=== PATIENT | female | born 1965 | race African-American/Black ===

== ENCOUNTER 2021-10-16 10:30 | Emergency (ER) | payer MEDICARE, OTHER ==
[2021-10-16] MEDS ORDERED: Sodium Chloride 0.9% 10 ML Syringe FLUSH PRN (11:16)
[2021-10-16] MEDS ORDERED: GI Cocktail Oral Solution 30 ML PO ONE (12:10)
[2021-10-16 12:16] LABS: CHLORIDE,CL 104 mmol/L (98-107); SODIUM,NA 141 mmol/L (136-145)
== END 2021-10-16 13:05 | disposition home or self-care (01) ==
LOC: DL.ED 10:30
DX: R07.89 Other chest pain (principal); E78.00 Pure hypercholesterolemia, unspecified; I25.2 Old myocardial infarction; K21.9 Gastro-esophageal reflux disease without esophagitis; E03.9 Hypothyroidism, unspecified; Z88.0 Allergy status to penicillin; Z91.013 Allergy to seafood; Z91.048 Other nonmedicinal substance allergy status; Z79.01 Long term (current) use of anticoagulants; Z79.899 Other long term (current) drug therapy
CPT/HCPCS: 36415; 71045; 80053; 82150; 83605; 83880; 84484; 85025; 93005; 99285; A9270

== ENCOUNTER 2022-07-05 14:30 | Emergency (ER) | payer MEDICARE, OTHER ==
[2022-07-05] MEDS ORDERED: Ciprofloxacin 500 MG Tab PO ONE (14:31)
[2022-07-05] MEDS ORDERED: Phenazopyridine 95 MG Tab PO ONE (14:31)
[2022-07-05] MEDS ORDERED: Fluconazole 100 MG Tab PO ONE (15:35)
[2022-07-05] MEDS ORDERED: Phenazopyridine 95 MG Tab ONE (15:38)
[2022-07-05] MEDS ORDERED: Ciprofloxacin 500 MG Tab ONE (15:38)
== END 2022-07-05 15:50 | disposition home or self-care (01) ==
LOC: DL.ED 14:30
DX: N39.0 Urinary tract infection, site not specified (principal); E70.0 Classical phenylketonuria; I25.2 Old myocardial infarction; K21.9 Gastro-esophageal reflux disease without esophagitis; E11.9 Type 2 diabetes mellitus without complications; E03.9 Hypothyroidism, unspecified; E66.9 Obesity, unspecified; Z68.41 Body mass index [BMI] 40.0-44.9, adult; Z88.0 Allergy status to penicillin; Z91.013 Allergy to seafood; Z79.01 Long term (current) use of anticoagulants; Z79.84 Long term (current) use of oral hypoglycemic drugs; Z79.899 Other long term (current) drug therapy
CPT/HCPCS: 81001; 87086; 99283; A9270

== ENCOUNTER 2023-04-16 17:16 | Emergency (ER) | payer MEDICARE, OTHER ==
[2023-04-16] MEDS ORDERED: Sodium Chloride 0.9% 10 ML Syringe FLUSH PRN (17:26)
[2023-04-16] MEDS ORDERED: Aspirin 81 MG Tab.Chew PO ONE (17:33)
[2023-04-16] MEDS: Nitroglycerin 0.4 MG Tab.SL SL PRN ×3 (17:55→18:41)
[2023-04-16] MEDS ORDERED: Morphine 4 MG/ML Syringe IVPUSH ONE (18:11)
[2023-04-16] MEDS ORDERED: Ondansetron 4 MG/2 ML SDV IV ONE (18:12)
[2023-04-16 18:21] LABS: BASOPHILS PERCENT AUTO 0.3 % (0.0-1.0); EOSINOPHILS PERCENT AUTO 0.7 % (1.0-3.0); HEMATOCRIT 40.6 % (37.0-47.0); HEMOGLOBIN 13.5 g/dL (12.0-16.0); LYMPHOCYTES PERCENT AUTO 29.9 % (20.5-50.1); MEAN CORPUSCULAR HGB CONC 33.3 g/dL (33.0-35.0); MEAN CORPUSCULAR VOLUME 90.2 fL (80-100); MONOCYTES PERCENT AUTO 8.3 % (2-8); NEUTROPHILS PERCENT AUTO 60.8 % (42.2-75.2); PLATELET COUNT,PLT 275 10^3/uL (150-450); WHITE BLOOD CELL COUNT,WBC 10.3 10^3/uL (5.0-10.0)
[2023-04-16 18:36] LABS: B-TYPE NATRIURETIC PEPTIDE,BNP 9 pg/ml (0-100)
[2023-04-16 18:41] LABS: ALANINE AMINOTRANSFERASE,ALT 24 U/L (14-59); ALBUMIN 3.6 g/dL (3.4-5.0); ALKALINE PHOSPHATASE 84 U/L (46-116); ANION GAP 11.8 mEq/L (7-13); ASPARTATE AMNIOTRANSFERASE,AST 16 U/L (15-37); BILIRUBIN TOTAL 0.1 mg/dL (0.2-1.0); BLOOD UREA NITROGEN,BUN 18 mg/dL (7-18); BUN/CREATININE RATIO 14.8 (No establ ref range); CALCIUM 8.8 mg/dL (8.5-10.1); CARBON DIOXIDE,CO2 27 mmol/L (21-32); CHLORIDE,CL 104 mmol/L (98-107); CREATININE 1.22 mg/dL (0.55-1.02); ESTIMATED GFR 52 mL/min (>=60); GLUCOSE RANDOM 103 mg/dL (70-99); POTASSIUM,K 3.8 mmol/L (3.5-5.1); PROTEIN TOTAL,TP 7.3 g/dL (6.4-8.2); SODIUM,NA 139 mmol/L (136-145)
[2023-04-16 18:55] LABS: PROTHROMBIN TIME 9.9 SEC (9.0-12.0); PTT,PARTIAL THROMBOPLSTIN TIME 22.1 SEC (22.0-34.0)
[2023-04-16] MEDS ORDERED: fentaNYL 100 MCG/2 ML SDV IVPUSH ONE (19:03)
[2023-04-16] MEDS ORDERED: predniSONE 10 MG Tab PO ONE (20:37)
[2023-04-16] MEDS ORDERED: Dexamethasone 4 MG/ML SDV IVPUSH ONE (20:56)
== END 2023-04-16 21:15 | disposition home or self-care (01) ==
LOC: DL.ED 17:16
DX: R07.81 Pleurodynia (principal); R07.89 Other chest pain; E78.00 Pure hypercholesterolemia, unspecified; I25.2 Old myocardial infarction; K21.9 Gastro-esophageal reflux disease without esophagitis; E11.9 Type 2 diabetes mellitus without complications; E03.9 Hypothyroidism, unspecified; E66.9 Obesity, unspecified; Z68.42 Body mass index [BMI] 45.0-49.9, adult; Z88.0 Allergy status to penicillin; Z91.013 Allergy to seafood; Z79.01 Long term (current) use of anticoagulants; Z79.899 Other long term (current) drug therapy
CPT/HCPCS: 36415; 71045; 80053; 83880; 84484; 85025; 85610; 85730; 93005; 93010; 96374; 96375; 99284; 99285-25; A9270-GY; J1100; J2270; J2405; J3010; J3490

== ENCOUNTER 2023-04-20 18:43 | Emergency (ER) | payer MEDICARE, OTHER | END 2023-04-20 19:53 | disposition home or self-care (01) | LOC: DL.ED 18:43 | DX: Z48.01 Encounter for change or removal of surgical wound dressing (principal); I25.10 Atherosclerotic heart disease of native coronary artery without angina pectoris; E78.00 Pure hypercholesterolemia, unspecified; I25.2 Old myocardial infarction; K21.9 Gastro-esophageal reflux disease without esophagitis; E11.9 Type 2 diabetes mellitus without complications; E03.9 Hypothyroidism, unspecified; E66.9 Obesity, unspecified; Z68.42 Body mass index [BMI] 45.0-49.9, adult; Z88.0 Allergy status to penicillin; Z91.013 Allergy to seafood; Z79.01 Long term (current) use of anticoagulants; Z79.899 Other long term (current) drug therapy | CPT/HCPCS: 99282 ==

== ENCOUNTER 2024-07-23 05:32 | Day surgery (SDC) | payer MEDICARE, OTHER ==
[2024-07-23] MEDS: Dextrose 5%-0.45% NaCl 1,000 ML IV SCH (05:58)
[2024-07-23] MEDS ORDERED: Midazolam 1 MG/ML 2 ML SDV IV ONE (06:15)
[2024-07-23] MEDS ORDERED: fentaNYL 100 MCG/2 ML SDV IV ONE (06:15)
[2024-07-23] MEDS ORDERED: Midazolam 1 MG/ML 2 ML SDV ONE (06:15)
[2024-07-23] MEDS ORDERED: fentaNYL 100 MCG/2 ML SDV ONE (06:15)
[2024-07-23] MEDS: fentaNYL 100 MCG/2 ML SDV IV ONE ×2 (06:33→06:34)
[2024-07-23] MEDS: Midazolam 1 MG/ML 2 ML SDV IV ONE ×3 (06:34→06:36)
== END 2024-07-23 08:55 | disposition home or self-care (01) ==
LOC: DL.ENDO 05:32
PROVIDERS: ATTEND Internal Medicine Gastroenterology
DX: Z12.11 Encounter for screening for malignant neoplasm of colon (principal); K57.30 Diverticulosis of large intestine without perforation or abscess without bleeding
CPT/HCPCS: 45378; J2250; J3010; J7799

== ENCOUNTER 2025-02-20 20:08 | Emergency (ER) | payer OTHER ==
[2025-02-20 22:11] LABS: INR 0.9 (0.9-1.2); PTT,PARTIAL THROMBOPLSTIN TIME 26.0 SEC (22.0-34.0)
[2025-02-20 22:20] LABS: TSH ULTRASENSITIVE 5.59 uIU/mL (0.36-3.74)
== END 2025-02-20 22:57 | disposition home or self-care (01) ==
LOC: DL.ED 20:08
DX: M79.651 Pain in right thigh (principal); R06.02 Shortness of breath; R94.6 Abnormal results of thyroid function studies; I25.10 Atherosclerotic heart disease of native coronary artery without angina pectoris; I25.2 Old myocardial infarction; E78.00 Pure hypercholesterolemia, unspecified; K21.9 Gastro-esophageal reflux disease without esophagitis; E11.9 Type 2 diabetes mellitus without complications; E03.9 Hypothyroidism, unspecified; Z86.16 Personal history of COVID-19; Z90.710 Acquired absence of both cervix and uterus; Z95.5 Presence of coronary angioplasty implant and graft; Z88.0 Allergy status to penicillin; Z91.013 Allergy to seafood; Z79.01 Long term (current) use of anticoagulants; Z79.84 Long term (current) use of oral hypoglycemic drugs; Z79.890 Hormone replacement therapy; Z79.899 Other long term (current) drug therapy
CPT/HCPCS: 36415; 83690; 84443; 85610; 85730; 93971; 99284; 99285

== ENCOUNTER 2025-04-25 17:31 | Emergency (ER) | payer OTHER ==
[2025-04-25 18:07] LABS: APPEARANCE,URINE SLIGHTLY CLOUDY (CLEAR); GLUCOSE,URINE 100 (NEGATIVE); OCCULT BLOOD,URINE NEGATIVE (NEGATIVE)
[2025-04-25 18:19] LABS: EPITHELIAL CELLS,URINE MODERATE /HPF (NOT SEEN)
[2025-04-25] MEDS: Ketorolac 30 MG/ML SDV IM ONE (18:29)
[2025-04-25] MEDS: Phenazopyridine 95 MG Tab PO ONE (18:29)
[2025-04-25] MEDS ORDERED: Sodium Chloride 0.9% 10 ML Syringe FLUSH PRN (18:30)
== END 2025-04-25 19:45 | disposition home or self-care (01) ==
LOC: DL.ED 17:31
DX: N39.0 Urinary tract infection, site not specified (principal); I25.2 Old myocardial infarction; E78.00 Pure hypercholesterolemia, unspecified; I25.10 Atherosclerotic heart disease of native coronary artery without angina pectoris; K21.9 Gastro-esophageal reflux disease without esophagitis; E03.9 Hypothyroidism, unspecified; F17.210 Nicotine dependence, cigarettes, uncomplicated; E11.9 Type 2 diabetes mellitus without complications; Z88.0 Allergy status to penicillin; Z91.013 Allergy to seafood; Z79.01 Long term (current) use of anticoagulants; Z79.890 Hormone replacement therapy; Z79.899 Other long term (current) drug therapy; Z79.84 Long term (current) use of oral hypoglycemic drugs; Z95.5 Presence of coronary angioplasty implant and graft
CPT/HCPCS: 81001; 96360; 96372; 99284; A9270; J1885; J7030

== ENCOUNTER 2025-06-08 16:02 | Emergency (ER) | payer OTHER ==
[2025-06-08] MEDS ORDERED: Sodium Chloride 0.9% 10 ML Syringe FLUSH PRN (16:13)
[2025-06-08 16:40] LABS: BASOPHILS PERCENT AUTO 0.2 % (0.0-1.0); EOSINOPHILS PERCENT AUTO 2.5 % (1.0-3.0); LYMPHOCYTES PERCENT AUTO 22.3 % (20.5-50.1); MONOCYTES PERCENT AUTO 6.5 % (2-8); NEUTROPHILS PERCENT AUTO 68.5 % (42.2-75.2); PLATELET COUNT,PLT 329 10^3/uL (150-450); RED BLOOD CELL COUNT 4.66 10^6/uL (4.2-5.4); WHITE BLOOD CELL COUNT,WBC 8.5 10^3/uL (5.0-10.0)
[2025-06-08] MEDS: Ondansetron 4 MG/2 ML SDV IVPUSH ONE (16:49)
[2025-06-08 16:56] LABS: INR 1.0 (0.9-1.2)
[2025-06-08 16:59] LABS: B-TYPE NATRIURETIC PEPTIDE,BNP < 5 pg/ml (0-100)
[2025-06-08 17:04] LABS: A/G RATIO 1.0; ALANINE AMINOTRANSFERASE,ALT 28 U/L (14-59); ASPARTATE AMNIOTRANSFERASE,AST 10 U/L (15-37); BILIRUBIN TOTAL 0.2 mg/dL (0.2-1.0); BLOOD UREA NITROGEN,BUN 15 mg/dL (7-18); CARBON DIOXIDE,CO2 32 mmol/L (21-32); CHLORIDE,CL 103 mmol/L (98-107); CREATININE 1.14 mg/dL (0.55-1.02); EST CRCL DRUG DOSING (CG) 48.40 mL/min; ESTIMATED GFR 56 mL/min (>=60); GLUCOSE RANDOM 110 mg/dL (70-99); POTASSIUM,K 4.2 mmol/L (3.5-5.1); PROTEIN TOTAL,TP 7.0 g/dL (6.4-8.2); SODIUM,NA 144 mmol/L (136-145)
[2025-06-08] MEDS: Iopamidol 612 MG/ML 100 ML Bottle IVPUSH ONE (17:20)
== END 2025-06-08 18:33 | disposition home or self-care (01) ==
LOC: DL.ED 16:02
DX: R07.9 Chest pain, unspecified (principal); K21.9 Gastro-esophageal reflux disease without esophagitis; E78.00 Pure hypercholesterolemia, unspecified; I25.10 Atherosclerotic heart disease of native coronary artery without angina pectoris; E11.9 Type 2 diabetes mellitus without complications; E03.9 Hypothyroidism, unspecified; E66.9 Obesity, unspecified; Z88.0 Allergy status to penicillin; Z91.013 Allergy to seafood; Z79.890 Hormone replacement therapy; Z79.899 Other long term (current) drug therapy; Z79.84 Long term (current) use of oral hypoglycemic drugs; Z90.710 Acquired absence of both cervix and uterus
CPT/HCPCS: 36415; 71275; 80053; 83880; 84484; 85025; 85610; 93005; 93010; 96374; 99284; 99285-25; A9270-GY; J2405; Q9967